=== PATIENT | male | born 1995 | race Caucasian/White ===

== ENCOUNTER 2016-12-24 22:01 | Emergency (ER) | payer OTHER ==
[~2016-12-24] VITALS: Ht 182.9 cm; Wt 81.6 kg
[2016-12-24] MEDS ORDERED: TETRACAINE 0.5% OPHTH SOLN 4 ML BTL (SINGLE DOSE ONLY) ONE (22:02)
[2016-12-24] MEDS ORDERED: FLUORESCEIN (FLUOR-I-STRIPS) 1 MG STRP ONE (22:02)
--- NOTE | 2016-12-24 22:11 | ED EENT ---
History of Present Illness General Stated Complaint: R EYE SWELLING Source: patient, spouse Exam Limitations: no limitations History of Present Illness Time seen by provider: 22:05 Initial Comments Patient presents to ER by private conveyance with chief complaint of his right eye was scratched by his 's finger now while he was asleep and waking up on accident. He feels warm body sensation. Pain 5 out of 10. He took 2 tablets of Motrin and then came to the ER because is not getting better. This happened approximately 2030 tonight. He has no prior history of injury to his eye, history of surgery or significant medical history. Is not taking any medications. He does smoke pack per day and occasional marijuana use. Allergies and Home Medications Allergies Coded Allergies: No Known Drug Allergies (Unverified , 12/24/16) Home Medications Ciprofloxacin HCl 5 Ml Drops, 2 DROPS OP QID for 5 Days, #5 Ref 0 Prescribed by: JOHNY HENNING on 12/24/16 3769 Review of Systems Constitutional: No chills, No fever Eyes: See HPI, Denies Blindness, Denies Drainage, Pain, Denies Photophobia, Denies Previous Injury, Denies Shadows, Glasses Ears: Denies Dizziness, Denies Pain Nose: denies clots, denies congestion Mouth: denies clots, denies loose teeth Throat: denies pain, denies swelling Respiratory: No cough, No short of breath Skin: No pruritus, No rash Past Ndpoxfg-Vqojmh-Aqxcwg Hx Patient Social History Alcohol Use: Denies Use Recreational Drug Use: Yes (MJ) Smoking Status: Current Everyday Smoker (1 ppd) Type Used: Cigarettes Recent Foreign Travel: No Contact w/Someone Who Travel: No Visual Acuity : Eye Location: Left (right was 20/40. Corrected.) Vision Acuity Degree: 20/25 Physical Exam Vital Signs Vital Sign - Last 12Hours 12/24/16 22:07 Temp 97.5 Pulse 90 Resp 20 B/P (MAP) 145/84 Pulse Ox 100 O2 Delivery Room Air General Appearance: WD/WN, mild distress Eyes: right eye other (erythema and tenderness. Wood's lamp examination reveals a 5 mm linear superficial corneal abrasion over the medial side of his iris.), left eye normal inspection, bilateral eye PERRL, bilateral eye EOMI Ears: bilateral ear auricle normal, bilateral ear canal normal, bilateral ear TM normal Nose: normal inspection, No active bleeding Mouth/Throat: normal mouth inspection, pharynx normal Neck: non-tender, supple Cardiovascular: normal peripheral pulses, regular rate, rhythm, no edema Respiratory: no respiratory distress, no accessory muscle use Neurologic/Psychiatric: alert, oriented x 3 Skin: normal color, warm/dry Progress/Results/Core Measures Results/Orders My Orders Orders - JOHNY HENNING Fluorescein Strips (Vxnqp-I-Nvqgof) (12/24/16 22:02) Tetracaine 0.5% Ophth Sheyla Sdv (Tetracai (12/24/16 22:02) Tetracaine 0.5% Ophth Sheyla Sdv (Tetracai (12/24/16 22:15) Fluorescein Strips (Htbgh-C-Smlseu) (12/24/16 22:15) Medications Given in ED Current Medications Medications Dose Ordered Sig/Madhu Route Start Time Stop Time Status Last Admin Dose Admin Fluorescein Sodium 1 mg ONCE ONCE OU 12/24/16 22:15 12/24/16 22:16 DC 12/24/16 22:17 1 MG Tetracaine HCl 4 ml ONCE ONCE OU 12/24/16 22:15 12/24/16 22:16 DC 12/24/16 22:17 4 ML Vital Signs/I&O Vital Sign - Last 12Hours 12/24/16 22:07 Temp 97.5 Pulse 90 Resp 20 B/P (MAP) 145/84 Pulse Ox 100 O2 Delivery Room Air Progress Note : Time: 22:23 Progress Note Wood's lamp examination shows a corneal abrasion. Does not look deep there is no penetrating globe trauma. We'll have him follow-up with optometry in the morning. Departure Impression Impression: Primary Impression: Corneal abrasion Qualified Codes: S05.01XA - Injury of conjunctiva and corneal abrasion without foreign body, right eye, initial encounter Disposition: HOME, SELF-CARE Condition: Improved Departure-Patient Inst. Decision time for Depature: 22:25 Referrals: NO,LOCAL PHYSICIAN (PCP/Family) Primary Care Physician Patient Instructions: Corneal Abrasion (DC) Add. Discharge Instructions: Please plan to follow up with optometry by calling their clinic in the morning to get an appointment in the next 12-48 hours. The phone numbers for [facility] is [phone]. Use the antibacterial eyedrop two drops, four times a day in the right eye for 5 days. You may also use mkkp-hmu-edmjsuu contact solution for your eyes if they become dry or irritated as needed. Please return to the ER if you lose vision. If you have other non-pressing medical issues you should consider following up with a primary care physician such as Dr. Abdullahi Mehta at [phone]. For pain you should consider using ibuprofen 4 tablets every 8 hours or Naprosyn 2 capsules twice a day in addition you can use 2 tablets of extra strength Tylenol or 3 tablets of regular strength Tylenol every 8 hours. A warm washcloth applied directly over the face will also be helpful. Scripts Ciprofloxacin HCl (Ciloxan) 5 Ml Drops 2 DROPS OP QID for 5 Days, #5 ML 0 Refills Prov: JOHNY HENNING 12/24/16 Copy Copies To 1: ABDULLAHI MEHTA MD Copies To 2: KARINA POTTER OD, TITUS J Dec 24, 2016 22:11
[2016-12-24] MEDS ORDERED: TETRACAINE 0.5% OPHTH SOLN 4 ML BTL (SINGLE DOSE ONLY) OU ONE (22:15)
[2016-12-24] MEDS ORDERED: FLUORESCEIN (FLUOR-I-STRIPS) 1 MG STRP OU ONE (22:15)
[2016-12-24] MEDS ORDERED: CIPR5DRO OP (22:29)
[2016-12-24 22:35] VITALS: BP 0/0
== END 2016-12-24 22:35 | disposition home or self-care (01) ==
LOC: ER 22:05
DX: S05.01XA Injury of conjunctiva and corneal abrasion without foreign body, right eye, initial encounter (principal); F17.210 Nicotine dependence, cigarettes, uncomplicated; F12.10 Cannabis abuse, uncomplicated; X58.XXXA Exposure to other specified factors, initial encounter
CPT/HCPCS: 99282

== ENCOUNTER → 2017-11-29 | Emergency (ER) | payer OTHER ==
[~2017-11-29] VITALS: Ht 182.9 cm; Wt 83.9 kg
[~2017-11-29] MED LIST: CIPR5DRO OP; NS IV 1000 ML 1,000 ML IV ONE
[2017-11-29 07:18] LABS: BASOPHILS % (AUTO) 0 % (0-10); EOSINOPHILS # (AUTO) 0.1 10^3/uL (0.0-0.3); EOSINOPHILS % (AUTO) 2 % (0-10); HEMATOCRIT 37 % (40-54); HEMOGLOBIN 13.6 G/DL (13.3-17.7); LYMPHOCYTES % (AUTO) 37 % (12-44); MEAN CORPUSCULAR HEMOGLOBIN 30 PG (25-34); MEAN CORPUSCULAR HGB CONC 37 G/DL (32-36); MEAN CORPUSCULAR VOLUME 83 FL (80-99); MEAN PLATELET VOLUME 11.1 FL (7.4-10.4); MONOCYTES # (AUTO) 0.5 X 10^3 (0.0-1.0); MONOCYTES % (AUTO) 10 % (0-12); NEUTROPHILS # (AUTO) 2.9 X 10^3 (1.8-7.8); NEUTROPHILS % (AUTO) 52 % (42-75); PLATELET COUNT 225 10^3/uL (130-400); RED CELL DISTRIBUTION WIDTH 12.7 % (10.0-14.5); WHITE BLOOD COUNT 5.6 10^3/uL (4.3-11.0)
[2017-11-29 07:30] LABS: BILIRUBIN,URINE NEGATIVE (NEGATIVE); CLARITY,URINE CLEAR; COLOR,URINE YELLOW; GLUCOSE, URINE (UA) NEGATIVE (NEGATIVE); KETONES,URINE NEGATIVE (NEGATIVE); LEUKOCYTE ESTERASE ,URINE NEGATIVE (NEGATIVE); NITRITE,URINE NEGATIVE (NEGATIVE); PH,URINE 6 (5-9); PROTEIN,URINE NEGATIVE (NEGATIVE); UROBILINOGEN,URINE NORMAL (NORMAL)
--- NOTE | 2017-11-29 07:32 | Diagnostic Imaging Report ---
Clinical indication: Patient complains of heart racing above zero 500. Patient complains of intermittent chest pain. Exam: Portable chest x-ray upright view. Comparisons: None. Findings: Lungs/pleura: Lungs are clear. There is no pneumothorax. There is no pleural effusion. Mediastinum: Unremarkable. Pulmonary vasculature: Unremarkable. Heart: Unremarkable. Bones/extrathoracic soft tissue: Unremarkable. Impression: There is no radiographic evidence of acute cardiopulmonary process. Dictated by: Dictated on workstation # [id number]
[2017-11-29 07:39] LABS: BACTERIA,URINE NEGATIVE /HPF
[2017-11-29 07:39] LABS: ALANINE AMINOTRANSFERASE 43 U/L (0-55); ALBUMIN 4.6 GM/DL (3.2-4.5); ALKALINE PHOSPHATASE 95 U/L (40-136); BILIRUBIN,TOTAL 0.3 MG/DL (0.1-1.0); BUN/CREATININE RATIO 12; CALCIUM 9.2 MG/DL (8.5-10.1); CARBON DIOXIDE 22 MMOL/L (21-32); CHLORIDE 104 MMOL/L (98-107); CREATININE SERUM 1.03 MG/DL (0.60-1.30); GFR ESTIMATED > 60; GLUCOSE 113 MG/DL (70-105); MAGNESIUM 2.4 MG/DL (1.8-2.4); SODIUM 135 MMOL/L (135-145); TOTAL PROTEIN 7.7 GM/DL (6.4-8.2)
[2017-11-29 07:41] LABS: AMPHETAMINE SCREEN, URINE NEGATIVE (NEGATIVE); BARBITURATE SCREEN URINE NEGATIVE (NEGATIVE); BENZODIAZEPINES SCREEN URINE NEGATIVE (NEGATIVE); CANNABINOID SCREEN, URINE POSITIVE (NEGATIVE); COCAINE SCREEN URINE NEGATIVE (NEGATIVE); METHADONE STAT NEGATIVE (NEGATIVE); METHAMPHETAMINE SCREEN URINE S NEGATIVE (NEGATIVE); OPIATE SCREEN URINE NEGATIVE (NEGATIVE); OXYCODONE STAT NEGATIVE (NEGATIVE); PROPOXYPHENE STAT NEGATIVE (NEGATIVE); TRICYCLIC ANTIDEPRESSANTS SCRE NEGATIVE (NEGATIVE)
--- NOTE | 2017-11-29 08:03 | ED General ---
General Chief Complaint: General Problems/Pain Stated Complaint: HEART WAS RACING, SWEATING,VOMITING,SHAKEY Nursing Triage Note: AMBULATORY TO ED WITH C/O HEART RACING ABOUT 0500, LAID DOWN, STARTED SHAKING UNCONTROLLABLY, VOMITED, DIZZY. CHEST PAIN ONLY IF "STRETCHES CHEST". HX OF "VERTIGO 2-3 MONTHS AGO AND SEEN AT URGENT CARE AND DX WITH DEHYDRATION. Nursing Sepsis Screen: No Definite Risk Source of Information: Patient, Family Exam Limitations: No Limitations History of Present Illness Date Seen by Provider: Nov 29, 2017 Time Seen by Provider: 06:55 Initial Comments This 22-year-old young man presents to the emergency room with an episode of palpitations (racing heart), shaking, diaphoresis, dizziness, and pain in his chest with stretching that started around 05:00. He vomited once at home. He feels improved now. Patient reports having a couple other episodes of similar symptoms over the past couple of months. He also complains of pain over the sternocleidomastoid muscle on the right. He additionally complains of a popping sensation by his ear when he moves his neck. He has seen Dr. Arreola for this pain and states it was tentatively diagnosed as a muscle spasm. Patient admits to marijuana use. He denies any alcohol or other drug use. He also reports an episode of vertigo about 2 or 3 months ago. Allergies and Home Medications Allergies Coded Allergies: No Known Drug Allergies (Unverified , 12/24/16) Home Medications Ciprofloxacin HCl 5 Ml Drops, 2 DROPS OP QID Prescribed by: JOHNY HENNING on 12/24/16 5275 Patient Home Medication List Home Medication List Reviewed: Yes Review of Systems Review of Systems Constitutional: see HPI EENTM: no symptoms reported Respiratory: see HPI Cardiovascular: see HPI Gastrointestinal: see HPI Genitourinary: no symptoms reported Musculoskeletal: see HPI Skin: no symptoms reported Psychiatric/Neurological: See HPI Hematologic/Lymphatic: No Symptoms Reported Immunological/Allergic: no symptoms reported Past Xduluuq-Ookfbl-Wpkamz Hx Past Med/Social Hx: Reviewed Nursing Past Med/Soc Hx Patient Social History Alcohol Use: Past History Recreational Drug Use: Yes Drug of Choice: MARIJUANA DAILY, STATES "HAS DONE A LIST OF DRUGS IN THE PAST" Type Used: Cigarettes 2nd Hand Smoke Exposure: Yes Recent Foreign Travel: No Contact w/Someone Who Travel: No Recent Infectious Disease Expo: No Recent Hopitalizations: No Immunizations Up To Date Tetanus Booster (TDap): More than 5yrs Seasonal Allergies Seasonal Allergies: No Past Medical History Surgeries: No Respiratory: Yes Asthma Cardiac: No Neurological: No Genitourinary: No Gastrointestinal: No Musculoskeletal: No Endocrine: No HEENT: No Cancer: No Psychosocial: No Integumentary: No Family Medical History Reviewed and Corrections made Cancer Physical Exam Vital Signs Vital Signs - First Documented 11/29/17 11/29/17 06:55 08:25 Temp 98.1 Pulse 89 Resp 19 B/P (MAP) 121/74 (90) Pulse Ox 97 O2 Delivery Room Air Capillary Refill : Less Than 3 Seconds Height, Weight, BMI Height: 6'0" Weight: 185lbs. oz. 83.725101nn; BMI Method:Stated General Appearance: No Apparent Distress, WD/WN HEENT: PERRL/EOMI, TMs Normal, Normal ENT Inspection, Pharynx Normal Neck: Normal Inspection, Tender Lateral (right side over the sternocleidomastoid muscle) Respiratory: Lungs Clear, Normal Breath Sounds, No Accessory Muscle Use, No Respiratory Distress Cardiovascular: Regular Rate, Rhythm, No Edema, No Murmur Gastrointestinal: Normal Bowel Sounds, Non Tender, Soft Extremity: Normal Capillary Refill, Normal Inspection, Non Tender, No Calf Tenderness Neurologic/Psychiatric: Alert, Oriented x3, No Motor/Sensory Deficits, Normal Mood/Affect, asset specialist II-XII Norm as Tested Skin: Normal Color, Warm/Dry Progress/Results/Core Measures Suspected Sepsis Recent Fever Within 48 Hours: No Infection Criteria Present: None New/Unexplained Altered Menta: No Sepsis Screen: No Definite Risk SIRS Temperature:98.1 Pulse: 89 Respiratory Rate: 19 Laboratory Tests 11/29/17 07:11: White Blood Count 5.6 Blood Pressure 121 /74 Mean: 90 Laboratory Tests 11/29/17 07:11: Creatinine 1.03, Platelet Count 225, Total Bilirubin 0.3 Results/Orders Lab Results Laboratory Tests Test 11/29/17 07:11 11/29/17 07:18 Range/Units White Blood Count 5.6 4.3-11.0 10^3/uL Red Blood Count 4.50 4.35-5.85 10^6/uL Hemoglobin 13.6 13.3-17.7 G/DL Hematocrit 37 L 40-54 % Mean Corpuscular Volume 83 80-99 FL Mean Corpuscular Hemoglobin 30 25-34 PG Mean Corpuscular Hemoglobin Concent 37 H 32-36 G/DL Red Cell Distribution Width 12.7 10.0-14.5 % Platelet Count 225 130-400 10^3/uL Mean Platelet Volume 11.1 H 7.4-10.4 FL Neutrophils (%) (Auto) 52 42-75 % Lymphocytes (%) (Auto) 37 12-44 % Monocytes (%) (Auto) 10 0-12 % Eosinophils (%) (Auto) 2 0-10 % Basophils (%) (Auto) 0 0-10 % Neutrophils # (Auto) 2.9 1.8-7.8 X 10^3 Lymphocytes # (Auto) 2.0 1.0-4.0 X 10^3 Monocytes # (Auto) 0.5 0.0-1.0 X 10^3 Eosinophils # (Auto) 0.1 0.0-0.3 10^3/uL Basophils # (Auto) 0.0 0.0-0.1 10^3/uL Sodium Level 135 135-145 MMOL/L Potassium Level 4.0 3.6-5.0 MMOL/L Chloride Level 104 98-107 MMOL/L Carbon Dioxide Level 22 21-32 MMOL/L Anion Gap 9 5-14 MMOL/L Blood Urea Nitrogen 12 7-18 MG/DL Creatinine 1.03 0.60-1.30 MG/DL Estimat Glomerular Filtration Rate > 60 BUN/Creatinine Ratio 12 Glucose Level 113 H 70-105 MG/DL Calcium Level 9.2 8.5-10.1 MG/DL Corrected Calcium 8.5-10.1 MG/DL Magnesium Level 2.4 1.8-2.4 MG/DL Total Bilirubin 0.3 0.1-1.0 MG/DL Aspartate Amino Transf (AST/SGOT) 30 5-34 U/L Alanine Aminotransferase (ALT/SGPT) 43 0-55 U/L Alkaline Phosphatase 95 40-136 U/L Troponin I < 0.30 <0.30 NG/ML Total Protein 7.7 6.4-8.2 GM/DL Albumin 4.6 H 3.2-4.5 GM/DL TSH Reeves Testing 1.50 0.35-4.94 UIU/ML Serum Alcohol < 10 <10 MG/DL Urine Color YELLOW Urine Clarity CLEAR Urine pH 6 5-9 Urine Specific [place] 1.010 L 1.016-1.022 Urine Protein NEGATIVE NEGATIVE Urine Glucose (UA) NEGATIVE NEGATIVE Urine Ketones NEGATIVE NEGATIVE Urine Nitrite NEGATIVE NEGATIVE Urine Bilirubin NEGATIVE NEGATIVE Urine Urobilinogen NORMAL NORMAL MG/DL Urine Leukocyte Esterase NEGATIVE NEGATIVE Urine RBC (Auto) NEGATIVE NEGATIVE Urine RBC NONE /HPF Urine WBC NONE /HPF Urine Squamous Epithelial Cells NONE /HPF Urine Crystals NONE /LPF Urine Bacteria NEGATIVE /HPF Urine Casts NONE /LPF Urine Mucus NEGATIVE /LPF Urine Culture Indicated NO Urine Opiates Screen NEGATIVE NEGATIVE Urine Oxycodone Screen NEGATIVE NEGATIVE Urine Methadone Screen NEGATIVE NEGATIVE Urine Propoxyphene Screen NEGATIVE NEGATIVE Urine Barbiturates Screen NEGATIVE NEGATIVE Ur Tricyclic Antidepressants Screen NEGATIVE NEGATIVE Urine Phencyclidine Screen NEGATIVE NEGATIVE Urine Amphetamines Screen NEGATIVE NEGATIVE Urine Methamphetamines Screen NEGATIVE NEGATIVE Urine Benzodiazepines Screen NEGATIVE NEGATIVE Urine Cocaine Screen NEGATIVE NEGATIVE Urine Cannabinoids Screen POSITIVE H NEGATIVE My Orders Orders - YULISA LEE MD Alcohol (11/29/17 07:05) Cbc With Automated Diff (11/29/17 07:05) Comprehensive Metabolic Panel (11/29/17 07:05) Drug Screen Stat (Urine) (11/29/17 07:05) Magnesium (11/29/17 07:05) Thyroid Analyzer (11/29/17 07:05) Troponin I (11/29/17 07:05) Ua Culture If Indicated (11/29/17 07:05) Saline Lock/Iv-Start (11/29/17 07:05) Ekg Tracing (11/29/17 07:05) Monitor-Rhythm Ecg Trace Only (11/29/17 07:05) Chest 1 View, Ap/Pa Only (11/29/17 07:05) Saline Lock/Iv-Start (11/29/17 07:05) Ns Iv 1000 Ml (Sodium Chloride 0.9%) (11/29/17 07:05) Medications Given in ED Vital Signs/I&O Capillary Refill : Less Than 3 Seconds Blood Pressure Mean: 90 ECG Initial ECG Impression Date: Nov 29, 2017 Initial ECG Impression Time: 07:00 Initial ECG Rate: 90 Initial ECG Rhythm: Normal Sinus Initial ECG Intervals: Normal Comment Normal sinus rhythm with incomplete right bundle branch block. Possible LVH. Borderline ST changes in V2. No diagnostic ST elevation or depression. Diagnostic Imaging Diagonstic Imaging: Xray Plain Films/CT/US/NM/MRI: chest Comments Viewed by me and report reviewed. NAME: [facility] REC#: [id number] PT STATUS: REG ER : 1995 PHYSICIAN: YULISA LEE MD ADMIT DATE: 11/29/17/ER Draft Date of Exam:11/29/17 CHEST 1 VIEW, AP/PA ONLY Clinical indication: Patient complains of heart racing above zero 500. Patient complains of intermittent chest pain. Exam: Portable chest x-ray upright view. Comparisons: None. Findings: Lungs/pleura: Lungs are clear. There is no pneumothorax. There is no pleural effusion. Mediastinum: Unremarkable. Pulmonary vasculature: Unremarkable. Heart: Unremarkable. Bones/extrathoracic soft tissue: Unremarkable. Impression: There is no radiographic evidence of acute cardiopulmonary process. Dictated on workstation # [id number] Dict: 11/29/17 0730 Trans: 11/29/17 0732 PENDING SALE TO [facility] [id number] Interpreted by: LILI WALDRON MD Reviewed: Reviewed by Me Departure Impression Primary Impression: Palpitations Additional Impression: Neck pain on right side Disposition: 01 HOME, SELF-CARE Condition: Improved Departure-Patient Inst. Decision time for Depature: 08:20 Referrals: NO,LOCAL PHYSICIAN (PCP/Family) Primary Care Physician Patient Instructions: Palpitations Add. Discharge Instructions: Follow-up with Dr. Arreola as soon as possible. Your workup in the ER was unremarkable. Discuss the possibility of further workup with Dr. Arreola which might include cardiac monitoring, imaging of the neck, referral to an ENT specialist, etc. Stay well-hydrated. Discontinue smoking of any inhaled products such as tobacco, marijuana, vapor, etc. Return to care if you have worsening of symptoms. All discharge instructions reviewed with patient and/or family. Voiced understanding. Copy Copies To 1: FLAQUITA ARREOLA JOSHUA T MD Nov 29, 2017 08:03
[2017-11-29 08:25] VITALS: BP 107/62
== END | disposition home or self-care (01) ==
LOC: EDUNIT# 06:43 → ER 06:46
DX: R00.2 Palpitations (principal); M54.2 Cervicalgia; J45.909 Unspecified asthma, uncomplicated; F12.10 Cannabis abuse, uncomplicated; Z77.22 Contact with and (suspected) exposure to environmental tobacco smoke (acute) (chronic)
CPT/HCPCS: 36415; 71045; 80053; 80306; 80320; 81000; 83735; 84443; 84484; 85025; 93005; 93041